=== PATIENT | female | born 1955 | race Caucasian/White ===

== ENCOUNTER 2020-11-28 13:44 | Inpatient (IN) | payer BC, OTHER ==
[~2020-11-28] VITALS: Ht 157.5 cm; Wt 62.6 kg
[2020-11-28] MEDS ORDERED: LORAZEPAM 2 MG/ML 1 ML VIAL ONE (14:16)
[2020-11-28 14:32] LABS: BASOPHILS % (AUTO) 0.2 % (0.0-5.0); HEMATOCRIT 39.7 % (36-48); LYMPHOCYTES % (AUTO) 13.6 % (21.0-51.0); MEAN CORPUSCULAR HEMOGLOBIN 27.7 pg (27.0-33.0); MEAN CORPUSCULAR HGB CONC 32.2 g/dL (32.0-36.0); MEAN CORPUSCULAR VOLUME 85.9 fL (79-99); MONOCYTES % (AUTO) 13.1 % (3.0-13.0); NEUTROPHILS % (AUTO) 72.9 % (40.0-77.0); PLATELET COUNT (AUTO) 227 K/uL (130-400); RED BLOOD CELL COUNT(AUTO) 4.62 MIL/uL (4.00-5.50); RED CELL DISTRIBUTION WIDTH 13.1 % (11.0-15.5); WHITE BLOOD COUNT (AUTO) 4.9 K/uL (4.8-10.8)
[2020-11-28 14:41] LABS: CREATININE 0.7 mg/dL (0.5-1.5)
[2020-11-28 14:42] LABS: INR 1.08 (0.85-1.15); PROTHROMBIN TIME 11.5 SEC (9.6-11.6)
[2020-11-28 14:43] LABS: PARTIAL THROMBOPLASTIN TIME 21.7 SEC (26.3-35.5)
[2020-11-28 14:45] LABS: ALBUMIN 3.7 g/dL (3.5-5.0); BILIRUBIN,TOTAL 0.5 mg/dL (0.2-1.0); TOTAL PROTEIN, SERUM 7.3 g/dL (6.0-8.3)
[2020-11-28] MEDS: SODIUM CHLORIDE 0.9% 1000ML 1,000 ML IV SCH (19:00)
[2020-11-28] MEDS ORDERED: LORAZEPAM 1 MG TABLET ONE (20:40)
[2020-11-28] MEDS: BUSPIRONE HCL 5 MG TABLET PO SCH (21:00)
[2020-11-28] MEDS: LORAZEPAM 1 MG TABLET PO SCH (21:00)
[2020-11-29 00:12] LABS: APPEARANCE,URINE Clear (CLEAR); BILIRUBIN,URINE Negative (NEGATIVE); COLOR,URINE Yellow (YELLOW); GLUCOSE, URINE (UA) Negative (NEGATIVE); KETONES,URINE 40 mg/dL (NEGATIVE); LEUKOCYTE ESTERASE ,URINE Small (NEGATIVE); NITRATE,URINE Negative (NEGATIVE); OCCULT BLOOD,URINE Negative (NEGATIVE); PH,URINE 5.5 (5.0-8.0); PROTEIN,URINE Trace mg/dL (NEGATIVE)
[2020-11-29 00:20] LABS: BACTERIA,URINE Few /HPF (None Seen); RBC,URINE 0-1 /HPF (0-1)
[2020-11-29 12:00] VITALS: BP 127/37
[2020-11-29] MEDS: BUSPIRONE HCL 5 MG TABLET PO SCH ×2 (13:29→20:34)
[2020-11-29] MEDS: SODIUM CHLORIDE 0.9% 1000ML 1,000 ML IV SCH ×2 (13:32→20:34)
[2020-11-29] MEDS ORDERED: PROPRANOLOL HCL 20 MG TAB PO SCH (15:30)
[2020-11-29] MEDS ORDERED: LEVO25CA4 PO (15:36)
[2020-11-29] MEDS ORDERED: METHYLPREDNISOLONE SOD SUCC 125MG/2ML VIAL IVP SCH (15:47)
[2020-11-29 16:00] VITALS: BP 124/37
[2020-11-29] MEDS: PROPRANOLOL HCL 20 MG TAB PO SCH (16:00)
[2020-11-29 20:16] VITALS: BP 139/54
[2020-11-29] MEDS: LORAZEPAM 1 MG TABLET PO SCH (20:34)
[2020-11-29 23:40] VITALS: BP 137/54
[2020-11-30] MEDS: PROPRANOLOL HCL 20 MG TAB PO SCH ×3 (00:15→17:00)
[2020-11-30 04:09] VITALS: BP 116/50
[2020-11-30 08:01] VITALS: BP 129/74
[2020-11-30] MEDS: BUSPIRONE HCL 5 MG TABLET PO SCH ×3 (09:00→22:20)
[2020-11-30] MEDS: SODIUM CHLORIDE 0.9% 1000ML 1,000 ML IV SCH (11:00)
[2020-11-30 11:36] VITALS: BP 119/55
[2020-11-30] MEDS ORDERED: METHIMAZOLE 10 MG TAB PO SCH ×2 (13:00→21:00)
[2020-11-30] MEDS ORDERED: PROPRANOLOL HCL 20 MG TAB PO SCH (16:00)
[2020-11-30 16:50] VITALS: BP 129/42
[2020-11-30 20:26] VITALS: BP 122/71
[2020-11-30] MEDS: LORAZEPAM 1 MG TABLET PO SCH ×2 (20:53→22:20)
[2020-11-30] MEDS: METHIMAZOLE 10 MG TAB PO SCH ×2 (20:53→22:20)
[2020-12-01] VITALS (7 sets, daily range): BP systolic 119–137; BP diastolic 43–65
[2020-12-01] MEDS: SODIUM CHLORIDE 0.9% 1000ML 1,000 ML IV SCH (00:20)
[2020-12-01] MEDS: PROPRANOLOL HCL 20 MG TAB PO SCH ×3 (01:09→16:52)
[2020-12-01] MEDS: BUSPIRONE HCL 5 MG TABLET PO SCH ×2 (09:14→20:54)
[2020-12-01] MEDS: METHIMAZOLE 10 MG TAB PO SCH ×3 (09:17→20:54)
[2020-12-01] MEDS: LORAZEPAM 1 MG TABLET PO SCH (20:56)
[2020-12-02] MEDS: PROPRANOLOL HCL 20 MG TAB PO SCH ×3 (02:25→17:47)
[2020-12-02 04:00] VITALS: BP_SYST 132; BP_SYST 96; BP_DIAS 50; BP_DIAS 61
[2020-12-02 07:13] LABS: THYROID STIMULATING HORMONE < 0.01 uIU/mL (0.36-3.74)
[2020-12-02] MEDS: BUSPIRONE HCL 5 MG TABLET PO SCH (09:59)
[2020-12-02] MEDS: METHIMAZOLE 10 MG TAB PO SCH ×3 (09:59→17:48)
== END 2020-12-02 18:45 | disposition home or self-care (01) | DRG 645 ==
LOC: DTH 13:44 → OBSVTOIN 17:47 → EDHIP 17:47 → 3BH 11-29 09:29
PROVIDERS: ADMIT Internal Medicine; ATTEND Internal Medicine
DX: E05.80 Other thyrotoxicosis without thyrotoxic crisis or storm (principal); K58.9 Irritable bowel syndrome, unspecified; G43.909 Migraine, unspecified, not intractable, without status migrainosus; F41.0 Panic disorder [episodic paroxysmal anxiety]; Z88.5 Allergy status to narcotic agent; T50.995A Adverse effect of other drugs, medicaments and biological substances, initial encounter; Z79.890 Hormone replacement therapy; Z90.710 Acquired absence of both cervix and uterus; Z83.3 Family history of diabetes mellitus; Z82.49 Family history of ischemic heart disease and other diseases of the circulatory system; Z80.9 Family history of malignant neoplasm, unspecified
CPT/HCPCS: 36415; 70551; 76536; 80053; 81001; 82306; 82533; 82670; 82679; 84432; 84439; 84443; 84445; 84480; 84481; 84484; 85025; 85610; 85730; 86376; 93005; 97039; G0378; J2060; J2930